=== PATIENT | female | born 1965 | race Hispanic/Latino ===

== ENCOUNTER → 2018-01-02 | Outpatient (CLI) | payer BC ==
--- NOTE | 2018-01-02 08:18 | Diagnostic Imaging Report ---
PROCEDURE: X-RAY CHEST, TWO VIEWS COMPARISON: 06/07/2017. INDICATIONS: COUGH FINDINGS: LUNGS: No consolidations or edema. Calcified granuloma right lower lobe unchanged. PLEURA: No effusions or pneumothorax. HEART \T\ MEDIASTINUM: The heart is within normal size-limits. BONES \T\ SOFT TISSUES: No acute findings. CONCLUSION: No acute thoracic abnormality. Dictated by: Colby Barker M.D. on 01/02/2018 at 8:20 Electronically approved by: Colby Barker M.D. on 01/02/2018 at 8:20
--- NOTE | 2018-01-02 08:21 | Diagnostic Imaging Report ---
PROCEDURE: X-RAY UPPER GI SERIES WITH AIR CONTRAST TECHNIQUE: Effervescent crystals and barium were ingested by mouth and multiple fluoroscopic spot images of the esophagus, stomach, and proximal small bowel were obtained. Fluoroscopy time: 1.4 minutes COMPARISON: None. INDICATIONS: COUGH FINDINGS: ESOPHAGUS: Motility: Within normal limits. Mucosa: Unremarkable. Distensibility: Normal. GASTROESOPHAGEAL JUNCTION: No evidence of hiatal hernia. GASTROESOPHAGEAL REFLUX: Significant gastroesophageal reflux into the upper third of the esophagus. STOMACH: Normally distensible and demonstrates normal contours and mucosal pattern. DUODENUM: Bulb and sweep are normal. Duodenal-jejunal junction is in the normal expected position. IMPRESSION: Spontaneous gastroesophageal reflux into the upper third of the esophagus. Otherwise unremarkable biphasic upper GI examination. Dictated by: Colby Barker M.D. on 01/02/2018 at 8:23 Electronically approved by: Colby Barker M.D. on 01/02/2018 at 8:23
== END ==
LOC: DX 07:14
PROVIDERS: ATTEND Family Medicine
DX: R05 Cough (principal)
CPT/HCPCS: 71046; 74246

== ENCOUNTER → 2019-02-12 | Day surgery (SDC) | payer BC ==
[2019-02-09 15:52] LABS: ANION GAP 13.9 mmol/L (8-16); BLOOD UREA NITROGEN 15 mg/dL (7-26); BUN/CREATININE RATIO 22 (6-25); CALCIUM 9.7 mg/dL (8.4-10.2); CARBON DIOXIDE 31 mmol/L (22-29); CHLORIDE 100 mmol/L (98-107); CREATININE, SERUM 0.69 mg/dL (0.57-1.11); EST GLOMERULAR FILTRATION RATE > 60 ML/MIN (60-); GLUCOSE 91 mg/dL (74-118); POTASSIUM 3.9 mmol/L (3.5-5.1); SODIUM 141 mmol/L (136-145)
[~2019-02-12] MED LIST: AMLODIPINE BESY10 MG PO; BUPIVACAINE HCL 0.5% INJ 30 ML VIAL INJ ONE; DEXAMETHASONE SOD PHOS INJ 4 MG/ML VIAL ONE; FENTANYL CITRATE/PF 100MCG/2 ML INJ ONE; HYDROCHLOROTHIA25 MG PO; HYDROXYCHLOROQ200 MG PO; KETOROLAC TROMETHAMINE 30 MG/ML VIAL ONE; LIDOCAINE HCL 2% LOCAL INJ 5 ML SDV VIAL INJ ONE; METFORMIN HCL500 MG PO; MIDAZOLAM HCL 2 MG/2 ML VIAL ONE; MUPIROCIN 2% OINT 22 GM TUBE ONE; NOVOLOG MI100 UNIT/1 SC; ONDANSETRON HCL INJ 2MG/ML 2ML 2 MG/ML VIAL ONE; PRAVASTATIN SOD20 MG PO; PREVACID15 MG PO; PROPOFOL IV EMULSION 10 MG/ML 20 ML VIAL ONE; SEVOFLURANE INHAL SOLN 250 ML PEN BTL ONE
--- OUTSIDE RECORDS SUMMARY | 2019-02-12 05:37 | XMS REPORT | Summary of Care ---
Author Organization Unknown Address Unknown Phone Unavailable Encounter HQ Encntr_aliariel(FIN) [id number] Date(s): 06/16/14 - 06/16/14 [facility] Outpatient Imaging - [address] [address]- [place] Discharge Disposition: Home Physician Attending: Rivas Larsen MD Reason for Visit V76.12 - SCREEN MAMMOGRA Problem List Condition Effective Dates Status Health Status Informant Breast Active lump(Confirmed) Hypercholesterolemia Active (Confirmed) IDDM - Active Insulin-dependent diabetes mellitus(Confirmed) Lupus(Confirmed) Active Allergies, Adverse Reactions, Alerts Substance Reaction Severity Status NKDA Active Medications No data available for this section Medications Administered During Your Visit No data available for this section Immunizations No data available for this section
--- OUTSIDE RECORDS SUMMARY | 2019-02-12 05:37 | XMS REPORT ---
Author Author Shea Stafford Organization [employer] Address Unknown Phone Unavailable Care Team Providers Care Colorman Name Role Phone Shea Stafford CP Unavailable Allergies, Adverse Reactions, Alerts Substance Reaction Event Type N.K.D.A. Info Not Available Non Drug Allergy Problems Problem Type Condition Code Onset Dates Condition Status Problem Lupus M32.9 Active Problem Carpal tunnel syndrome G56.00 Active Problem Carpal tunnel syndrome, right upper limb G56.01 Active Assessment Long-term use of high-risk medication Z79.899 Active Problem Long-term use of high-risk medication Z79.899 Active Assessment Lupus M32.9 Active Medications Medication Code System Code Instructions Start Date End Date Status Dosage Hydroxychloroquine Sulfate ND 19574676889 200 MG Active TOME 1 TABLETA DOS VECES AL ALTA CON COMIDA O LECHE Hydroxychloroquine Sulfate NDC 48177883807 200 MG Active TOME 1 TABLETA DOS VECES AL ALTA CON COMIDA O LECHE Iron ND 58781487764 28 MG Orally Once a day Active 1 tablet Metformin HCl NDC 95233071097 500 MG Orally Twice a day Active 1 tablet with meals Pravastatin Sodium ND 45556197162 20 MG Orally Once a day Active 1 tablet Novolin 70/30 ND 73165901667 (70-30) 100 UNIT/ML Subcutaneous Active as directed Valsartan ND 17303057334 160 MG Orally Once a day Active 1 tablet Vital Signs Date/Time: Sep 05, 2017 BMI 32.59 Index Weight 184 lbs Height 63 in Temperature 96.3 F Cardiac Monitoring Heart Rate 70 /min Blood Pressure Diastolic 80 mm Hg Blood Pressure Systolic 132 mm Hg Results No Known Results Summary Purpose [employer]ClinicalWorks Submission
--- OUTSIDE RECORDS SUMMARY | 2019-02-12 05:37 | XMS REPORT | Summary of Care ---
Author Author [facility] - [place] Organization [facility] [place] Address Unknown Phone Unavailable Encounter HQ Encntr_aliariel(FIN) [id number] Date(s): 01/07/16 - 01/07/16 [facility] Outpatient Imaging - [place] [address] [address]- [facility] [phone] Discharge Disposition: Home Attending Physician: Rivas Larsen MD Vital Signs No data available for this section Problem List Condition Effective Dates Status Health Status Informant Benign hypertension1 Active Benign tumor of 04/07/13 Active breast2 Breast Active lump(Confirmed) Hypercholesterolemia Active 3 IDDM - Active Insulin-dependent diabetes mellitus(Confirmed) Lupus(Confirmed) Active Obesity4 04/07/13 Active Type 2 diabetes Active mellitus5 1Data migrated from [employer] on 01/15/15. 2Data migrated from [employer] on 01/15/15. 3Data migrated from [employer] on 01/15/15. 4Data migrated from [employer] on 01/15/15. 5Data migrated from [employer] on 01/15/15. Allergies, Adverse Reactions, Alerts Substance Reaction Severity Status NKDA Active Medications No data available for this section Results No data available for this section Immunizations No data available for this section Procedures No data available for this section Social History No data available for this section Assessment and Plan No data available for this section
--- OUTSIDE RECORDS SUMMARY | 2019-02-12 05:37 | XMS REPORT | Summary of Care ---
Author Author [facility] [place] Organization [facility] [place] Address Unknown Phone Unavailable Encounter HQ Encntr_aliariel(FIN) [id number] Date(s): 09/13/17 - 09/13/17 [facility] [place] [address] [phone] Encounter Diagnosis Encounter for screening mammogram for malignant neoplasm of breast (Final) - 09/16/17 Discharge Disposition: Home or Self Care Attending Physician: Troy Weiss MD Vital Signs No data available for [...]
--- OUTSIDE RECORDS SUMMARY | 2019-02-12 05:37 | XMS REPORT | Summary of Care ---
Author Author [facility] [place] Organization [facility] [place] Address Unknown Phone Unavailable Encounter HQ Ernestor_elio(FIN) [id number] Date(s): 11/28/18 - 11/28/18 [facility] Outpatient Imaging - [place] [address] [place] [phone] Encounter Diagnosis Encounter for screening mammogram for malignant neoplasm of breast (Final) - Discharge Disposition: Home or Self Care Attending Physician: Rivas Larsen MD Referring Physician: Rivas Larsen MD Vital Signs No [...]
--- OUTSIDE RECORDS SUMMARY | 2019-02-12 05:37 | XMS REPORT | Continuity of Care Document ---
Author Author [facility] Organization [employer] Address Unknown Phone Unavailable Care Team Providers Care Support Dba Name Role Phone [employer] Unavailable Unavailable Problems Problem Status Onset Date Classification Date Reported Comments Source Z12.31 - ENCNTR SCREEN MAMMOGRAM FOR MA Active 11/24/2015 [facility] UNK Active 05/21/2013 [facility] Benign tumor of breast<sup>2</sup> Active 04/07/2013 Problem 11/30/2018 Data migrated from [employer] on 01/15/15. [facility] [place] Obesity<sup>4</sup> Active 04/07/2013 Problem 11/30/2018 Data migrated from [employer] on 01/15/15. [facility] [place] LEFT BREAST MASS Active 12/29/2012 [facility] Encounter for screening mammogram for malignant neoplasm of breast 11/30/2018 [facility] [place] Benign hypertension<sup>1</sup> Active Problem 11/30/2018 Data migrated from [employer] on 01/15/15. [facility] [place] Breast lump Active Problem 11/30/2018 [facility] [place] Hypercholesterolemia<sup>3</sup> Active Problem 11/30/2018 Data migrated from [employer] on 01/15/15. [facility] [place] IDDM - Insulin-dependent diabetes mellitus Active Problem 11/30/2018 [facility] [place] Lupus Active Problem 11/30/2018 [facility] [place] Type 2 diabetes mellitus<sup>5</sup> Active Problem 11/30/2018 Data migrated from [employer] on 01/15/15. [facility] [place] Hypercholesterolemia Active Problem 06/18/2014 [facility] [place] Long-term use of high-risk medication Active Diagnosis 11/14/2018 Lauri Leary Carpal tunnel syndrome, right upper limb Active Problem 11/14/2018 Lauri Leary Lupus Active Problem 11/14/2018 Lauri Leary Proteinuria, unspecified Active Problem 11/14/2018 Lauri Leary Carpal tunnel syndrome Active Problem 11/14/2018 Lauri Leary Medications Medication Details Route Status Patient Instructions Ordering Provider Order Date Source Lisinopril 1 tablet Orally Active 2.5 MG Orally Once a day Nydia 04/23/2018 Lauri Leary Hydroxychloroquine Sulfate 1 tablet with food or milk Orally Active 200 MG Orally Twice a day Nydia Lauri Leary Amlodipine Besylate 1 tablet Orally Active 10 MG Orally Once a day Nydia Lauri Leary Hydrochlorothiazide 1 tablet in the morning Orally Active 25 MG Orally Once a day Nydia Lauri Leary Lansoprazole 1 capsule Orally Active 30 MG Orally Once a day Nydia Lauri Leary Iron 1 tablet Orally Active 28 MG Orally Once a day Nydia Lauri Leary Pravastatin Sodium 1 tablet Orally Active 20 MG Orally Once a day Nydia Lauri Leary Metformin HCl 1 tablet with meals Orally Active 500 MG Orally Twice a day Nydia Lauri Leary Novolin 70/30 as directed Subcutaneous Active (70-30) 100 UNIT/ML Subcutaneous twice a day Nydia Lauri Leary Valsartan 1 tablet Orally Active 160 MG Orally Once a day Nydia Lauri Leary Hydroxychloroquine Sulfate TOME 1 TABLETA DOS VECES AL ALTA CON COMIDA O LECHE NA Active 200 MG Nydia Lauri Leary Allergies, Adverse Reactions, Alerts Substance Category Reaction Severity Reaction type Status Date Reported Comments Source N.K.D.A. Adverse Reaction Info Not Available Adverse Reaction Active 11/11/2018 Lauri Leary Immunizations Results Pathology Reports Diagnostic Reports Report Value Date Source Breast Mammo Scrn LES incl CAD MA BILATERAL DIGITAL SCREENING MAMMOGRAM WITH CAD: 11/28/2018 CLINICAL: Encounter For Screening Mammogram For Malignant Neoplasm Of Breast/Z12.31. Current study was evaluated with a Computer Aided Detection (CAD) system. COMPARISON:Comparison is made to exams dated: 09/13/2017 mammogram, 01/07/2016 mammogram, and 06/16/2014 mammogram - [facility]. TECHNIQUE: Mammographic views were obtained using digital acquisition. Current study was also evaluated with a Computer Aided Detection (CAD) system. FINDINGS: There are scattered fibroglandular densities in both breasts. There are post operative findings in the left breast. No significant masses, calcifications, or other findings are seen in either breast. There has been no significant interval change. IMPRESSION: BENIGN RECOMMENDATION:There is no mammographic evidence of malignancy. A 1 year screening mammogram is recommended.(11/29/2019) This exam was interpreted at [id number] for CARMEN Pina, SL 15. Professional services are provided by the [facility] Division of Diagnostic Imaging. Sonal Laird M.D. ms/penrad:11/28/2018 08:34:50 Car Varnisher(s): Rere Garcia, RT(R)(M), [facility] letter sent: BI-RADS 1/2 Mammogram BI-RADS: 2 Benign 11/28/2018 [facility] [place] Breast Mammo Scrn LES incl CAD MA BILATERAL DIGITAL SCREENING MAMMOGRAM WITH CAD: 09/13/2017 CLINICAL: Routine/Screening. Current study was evaluated with a Computer Aided Detection (CAD) system. COMPARISON:Comparison is made to exams dated: 01/07/2016 mammogram, 06/16/2014 mammogram - [facility], 01/01/2013 mammogram - [facility], 12/23/2012 mammogram, and 11/15/2010 mammogram - [facility]. TECHNIQUE: Mammographic views were obtained using digital acquisition. Current study was also evaluated with a Computer Aided Detection (CAD) system. FINDINGS: There are scattered fibroglandular densities in both breasts. There are post operative findings in the left breast. No significant masses, calcifications, or other findings are seen in either breast. There has been no significant interval change. IMPRESSION: BENIGN RECOMMENDATION:There is no mammographic evidence of malignancy. A 1 year screening mammogram is recommended.(09/14/2018) This exam was interpreted at [id number] for CARMEN Pina. Professional services are provided by the [facility] Division of Diagnostic Imaging. Israel Tavarez M.D. cm/penrad:09/16/2017 08:40:40 Car Varnisher(s): Aneta Chairez, RT(R)(M), [facility] letter sent: BI-RADS 1/2 Mammogram BI-RADS: 2 Benign 09/13/2017 [facility] [place] Digital Mammo Screening Les MA - DIGITAL MAMMO SCREENING LES MA BILATERAL DIGITAL SCREENING MAMMOGRAM WITH CAD: 01/07/2016 CLINICAL: Z12.31 Encounter For Screening Mammogram For Malignant Neoplasm Of Breast. Current study was evaluated with a Computer Aided Detection (CAD) system. Comparison is made to exams dated: 06/16/2014 mammogram - [facility], 01/01/2013 mammogram - [facility], 12/23/2012 mammogram and 11/15/2010 mammogram - [facility]. There are scattered fibroglandular densities in both breasts. There are post operative findings in the left breast. No significant masses, calcifications, or other findings are seen in either breast. There has been no significant interval change. IMPRESSION: NEGATIVE There is no mammographic evidence of malignancy. A 1 year screening mammogram is recommended. Monica Tyler M.D. ia/penrad:01/09/2016 14:02:09 Car Varnisher: Kristie Unger RT(R)(M), [facility] This exam was dictated and interpreted by [id number] for CARMEN Torres. letter sent: Normal exam Mammogram BI-RADS: 1 Negative 01/07/2016 [facility] [place] Digital Mammo Screening Les MA - DIGITAL MAMMO SCREENING LES MA BILATERAL DIGITAL SCREENING MAMMOGRAM WITH CAD: 06/16/2014 CLINICAL: Annual Screening. Current study was evaluated with a Computer Aided Detection (CAD) system. Comparison is made to exams dated: 11/15/2010 mammogram, 12/23/2012 mammogram - [facility] and 06/15/2013 localization - [facility]. The tissue of both breasts is heterogeneously dense, which could obscure detection of small masses. There are post operative findings in the left breast. No significant masses, calcifications, or other findings are seen in either breast. IMPRESSION: BENIGN There is no mammographic evidence of malignancy. A screening mammogram in one year is recommended. Dr. Rachele ramsey/penrad:06/17/2014 12:19:03 Car Varnisher: Anastacia Lynch RT(R)(M), [facility] This exam was dictated and interpreted by [id number] for CARMEN Torres. letter sent: Normal exam Mammogram BI-RADS: 2 Benign 06/16/2014 [facility] [place] Digital Mammo DX Uni MA - DIGITAL MAMMO DX UNI MA/L UNILATERAL LEFT DIGITAL DIAGNOSTIC MAMMOGRAM WITH CAD POST-PROCEDURE IMAGING FOR MARKER PLACEMENT: 01/01/2013 CLINICAL: Post Biopsy Clip Placement. Current study was evaluated with a Computer Aided Detection (CAD) system. Comparison is made to exams dated: 12/23/2012 mammogram, 11/15/2010 mammogram, 12/23/2012 ultrasound - [facility] and 01/01/2013 ultrasound biopsy - [facility]. The tissue of the left breast is heterogeneously dense. This may lower the sensitivity of mammography. Post procedure digital mammogram demonstrates the biopsy clip in appropriate position. Biopsied lesion is again noted. No other significant interval change. IMPRESSION: POST PROCEDURE MAMMOGRAM FOR MARKER PLACEMENT Biopsy clip is in appropriate position. Please see biopsy report for further details. Follow-up with ACR/ACS guidelines. SUMMARY: SL: 13. Montse urbinat/penrad:01/01/2013 14:41:55 Car Varnisher: Karen Thayer, [facility] Mammogram BI-RADS: Post-procedure mammogram for marker placement 01/01/2013 [facility] Breast biopsy US guided - BREAST BIOPSY US GUIDED/L ULTRASOUND GUIDED BIOPSY LEFT BREAST WITH MARKING DEVICE INSERTED AND POST DIGITAL MAMMOGRAPHIC AND ULTRASOUND IMAGIN01/01/2013 CLINICAL: Left Breast Mass. PATIENT CONSENT: Oral and written informed consent was obtained. Risks, benefits, and alternatives were discussed with the patient. Risks include but are not limited to pain, infection, bleeding, incomplete procedure, repeat procedure, pneumothorax, damage to surrounding tissues, and allergic reaction. The patient understands the plan and wishes to proceed. A time out was performed immediately prior to the procedure. Correlation is made to exams dated: 12/23/2012 ultrasound, 12/23/2012 mammogram and 11/15/2010 mammogram - [facility]. An ultrasound guided biopsy using real-time ultrasound was performed for the concerning palpable 9 mm wider than tall circumscribed oval mass located in the left breast at 11 o'clock anterior depth 9 cm from the nipple. This was described on the previous mammography and ultrasound reports. The skin was prepped in the usual manner. 10 ccs of 1% lidocaine was administered during the procedure. A skin john was made in the breast. The abnormality was approached from the lateral aspect. A 14 gauge biopsy needle was placed adjacent to the abnormality through an introducer device under ultrasound guidance. Once the needle was documented to be in the correct location, three cores were obtained using a BARD biopsy device. A Bard UltraClip Dual Trigger ribbon clip was inserted into the biopsy cavity. A skin adhesive and a sterile dressing were applied to the access site. Post procedure digital mammographic and ultrasound imaging demonstrates the clip at the targeted area and partial removal of the abnormality. The specimens were sent to the laboratory for pathological analysis. IMPRESSION: ULTRASOUND GUIDED BIOPSY HIGH RISK BENIGN Ultrasound guided biopsy of the 9 mm wider than tall mass in the left breast at 11 o'clock anterior depth 9 cm from the nipple was successful with no apparent post procedure complications. Pathology indicates high risk benign findings "Lymphoplasmacytic proliferation with keloid like collagen formation; There are no definitive changes of lymphoma but cannot entirely exclude a low grade lymphoma with plasmacytic differentiation. Also within the differential is lymphocytic/diabetic mastopathy. Recommend excision of lesion for definitive evaluation. Recommend flow cytometry to be performed on excised specimen". Pathology results are concordant with imaging findings. A surgical consult and a surgical excision are recommended. A phone call was made to the physician at 1400 hrs 01/08/13. SL: 13. Montse wilson/:01/13/2013 07:33:21 Car Varnisher: Tanesha Mari, [facility] 01/01/2013 [facility] Consultation Notes Discharge Summaries History and Physicals Vital Signs Vital Sign Value Date Comments Source Weight 187.9 11/11/2018 Lauri Leary Height 63 11/11/2018 Lauri Leary Temperature Oral (F) 98.1 F 11/11/2018 Lauri Leary Heart Rate 72 11/11/2018 Lauri Leary Diastolic (mm Hg) 80 11/11/2018 Lauri Leary Systolic (mm Hg) 140 11/11/2018 Lauri Leary Weight 189.8 04/23/2018 Lauri Leary Height 63 04/23/2018 Lauri Leary Temperature Oral (F) 98.1 F 04/23/2018 Lauri Leary Heart Rate 68 04/23/2018 Lauri Leary Diastolic (mm Hg) 70 04/23/2018 Lauri Leary Systolic (mm Hg) 132 04/23/2018 Lauri Leary Weight 184 09/05/2017 Lauri Leary Height 63 09/05/2017 Lauri Leary Temperature Oral (F) 96.3 F 09/05/2017 Lauri Leary Heart Rate 70 09/05/2017 Lauri Leary Diastolic (mm Hg) 80 09/05/2017 Lauri Leary Systolic (mm Hg) 132 09/05/2017 Lauri Leary Encounters Location Location Details Encounter Type Encounter Number Reason For Visit Attending Provider ADM Date DC Date Status Source [facility] Outpatient [id number] LEFT BREAST MASS RIVAS LARSEN 01/01/2013 Active [facility] [place] [facility] [id number] Rivas Larsen 06/16/2014 06/17/2014 [facility] [place] [facility] - [place] [facility] [id number] Rivas Larsen 01/07/2016 01/08/2016 [facility] [place] [facility] - [place] [facility] [id number] Troy Weiss 09/13/2017 09/14/2017 [facility] [place] [facility] - [place] Outpt Di[facility] Services [id number] Rivas Larsen 11/28/2018 11/29/2018 [facility] [place] [facility] Outpatient [id number] JAYLEEN ORDONEZ Active [facility] Procedures Plan of Care Social History Social History Date Source No data available for this section 11/29/2018 [facility] [place] Family History Advance Directives Functional Status
--- OUTSIDE RECORDS SUMMARY | 2019-02-12 05:37 | XMS REPORT ---
Author Author Shea Stafford [facility] [employer] Address Unknown Phone Unavailable Care Team Providers Care Supervisor Telephone Information Name Role Phone Shea Stafford Unavailable Allergies, Adverse Reactions, Alerts Substance Reaction Event Type N.K.D.A. Info Not Available Non Drug Allergy Problems Problem Type Condition Code Onset Dates Condition Status Assessment Long-term use of high-risk medication Z79.899 Active Problem Carpal tunnel syndrome, right upper limb G56.01 Active Problem Lupus M32.9 Active Problem Proteinuria, unspecified R80.9 Active Assessment Lupus M32.9 Active Problem Carpal tunnel syndrome G56.00 Active Problem Long-term use of high-risk medication Z79.899 Active Medications Medication Code System Code Instructions Start Date End Date Status Dosage Hydroxychloroquine Sulfate [facility] 54954957646 200 MG Orally Twice a day Active 1 tablet with food or milk Lisinopril [facility] 01432791484 2.5 MG Orally Once a day Apr 23, 2018 Active 1 tablet Amlodipine Besylate [facility] 76893385419 10 MG Orally Once a day Active 1 tablet Hydrochlorothiazide [facility] 01621065650 25 MG Orally Once a day Active 1 tablet in the morning Lansoprazole [facility] 08790667879 30 MG Orally Once a day Active 1 capsule Iron [facility] 10462558174 28 MG Orally Once a day Active 1 tablet Pravastatin Sodium [facility] 75326431252 20 MG Orally Once a day Active 1 tablet Metformin HCl [facility] 94867653508 500 MG Orally Twice a day Active 1 tablet with meals Novolin 70/30 [facility] 65770117166 (70-30) 100 UNIT/ML Subcutaneous twice a day Active as directed Valsartan [facility] 59347477679 160 MG Orally Once a day Active 1 tablet Vital Signs Date/Time: November 11, 2018 BMI 33 Index Weight 187.9 lbs Height 63 in Temperature 98.1 F Cardiac Monitoring Heart Rate 72 /min Blood Pressure Diastolic 80 mm Hg Blood Pressure Systolic 140 mm Hg Results No Known Results Summary Purpose [employer] Submission
--- OUTSIDE RECORDS SUMMARY | 2019-02-12 05:38 | XMS REPORT ---
Author Author [facility] Address Unknown Phone Unavailable Care Team Providers Care De Icer Name Role Phone Lelia BATISTA PP Unavailable MARTINA MCNULTY Unavailable Unavailable JOHANNE BATISTA M.D. Unavailable Unavailable Problems This patient has no known problems. Allergies, Adverse Reactions, Alerts This patient has no known allergies or adverse reactions. Medications This patient has no known medications. Results Test Description Test Time Test Comments Text Results Atomic Results Result Comments POC Glucose, Blood 2017-07-05 11:06:00 POC Glucose (test code=POCGLUC) 210 mg/dL 70-115 Notify RN or MDIf you consider your patient critically ill, the Tatiana Accu-Chek InformII metershould not be used for Glucose determinations.Draw a venous Glucose and send to the Main Lab for Analysis. Basic Metabolic [id number] 06:42:00* Test Item Value Reference Range Comments Sodium (test code=NA) 140 mmol/L 135-145 Potassium (test code=K) 4.7 mmol/L 3.5-5.1 Chloride (test code=CL) 103 mmol/L 98-105 Carbon Dioxide (test code=CO2) 29 mmol/L 22-29 Glucose (test code=GLU) 138 mg/dL 70-115 Blood Urea Nitrogen (test code=BUN) 10 mg/dL 6-20 Creatinine (test code=CREAT) 0.5 mg/dL 0.5-0.9 Calcium (test code=CA) 9.0 mg/dL 8.3-10.5 BUN/Creatinine Ratio (test code=BCRATIO) 20.0 Anion Gap (test code=AGAP) 8 mmol/L 7-16 Estimated GFR (test code=GFR) >60 mL/min/1.73m2 eGFR (estimated Glomerular Filtration Rate) is an estimated value,calculated from the patient's serum creatinine using the MDRD equation.It is NOT the patient's actual GFR. The eGFR provides a more clinicallyuseful measure of kidney disease than serum creatinine alone.This calculation takes sex and race into account, if the informationis provided. If the race is not provided, and the patient isAfrican-Cambodian, multiply by 1.212. If sex is not provided, and thepatient is female, multiply by 0.742. Results for patients <18 years ofage have not been validated by the MDRD study and should be interpretedwith caution.eGFR Result Interpretation:eGFR > or=60 is in the Normal RangeeGFR < 60 may mean kidney diseaseeGFR < 15 may mean kidney failureRanges recommended by the National Kidney Foundat ion,http://nkdep.nih.gov CBC with [id number] 06:32:00* Test Item Value Reference Range Comments WBC (test code=WBC) 9.8 K/cumm 4.4-10.5 RBC (test code=RBC) 3.42 M/cumm 3.75-5.20 Hemoglobin (test code=HGB) 10.6 gm/dL 12.2-14.8 VERIFIED BY REPEAT TESTINGREAD BACK LAB VALUESLOW DELTA HGB DUE TO SURGERY PER Salma DIEGO/RN @0631 ON 07/05/17 BYED Hematocrit (test code=HCT) 29.5 % 36.5-44.4 MCV (test code=MCV) 86.3 fL 80-100 MCH (test code=MCH) 30.9 pg 27.0-32.5 MCHC (test code=MCHC) 35.9 g/dL 32.0-37.5 RDW (test code=RDW) 12.8 % 11.5-14.5 Platelet Count (test code=PLTCT) 186 K/cumm 140-440 MPV (test code=MPV) 10.6 fL Diff Method (test code=DIFFM) Auto Neutrophil (test code=NEUT) 67.1 % 36-70 Lymphocyte (test code=LYMPH) 27.7 % 12-44 Monocyte (test code=MONO) 4.9 % 0-11 Eosinophil (test code=EOS) 0.1 % 0-7 Basophil (test code=BASO) 0.2 % 0-2 Neutro Abs (test code=ANEUT) 6.6 K/cumm 1.6-7.4 Lymph Abs (test code=ALYMPH) 2.7 K/cumm 0.5-4.6 Haskell Abs (test code=AMONO) 0.5 K/cumm 0.0-1.2 Eos Abs (test code=AEOS) 0.01 K/cumm 0.00-0.74 Baso Abs (test code=ABASO) 0.0 K/cumm 0.00-0.21 POC Glucose, [id number] 00:52:00* Test Item Value Reference Range Comments POC Glucose (test code=POCGLUC) 231 mg/dL 70-115 If you consider your patient critically ill, the Tatiana Accu-Chek InformII metershould not be used for Glucose determinations.Draw a venous Glucose and send to the Main Lab for Analysis. POC Glucose, [id number] 19:17:00* Test Item Value Reference Range Comments POC Glucose (test code=POCGLUC) 277 mg/dL 70-115 If you consider your patient critically ill, the Tatiana Accu-Chek InformII metershould not be used for Glucose determinations.Draw a venous Glucose and send to the Main Lab for Analysis. POC Glucose, [id number] 16:38:00* Test Item Value Reference Range Comments POC Glucose (test code=POCGLUC) 201 mg/dL 70-115 If you consider your patient critically ill, the Tatiana Accu-Chek InformII metershould not be used for Glucose determinations.Draw a venous Glucose and send to the Main Lab for Analysis. POC Glucose, [id number] 11:51:00* Test Item Value Reference Range Comments POC Glucose (test code=POCGLUC) 224 mg/dL 70-115 If you consider your patient critically ill, the Tatiana Accu-Chek InformII metershould not be used for Glucose determinations.Draw a venous Glucose and send to the Main Lab for Analysis. XR SPINE, LUMBAR 1 [id number] 10:15:24Radiographic Assistance:LOCATION: [id number]: M51.26: OTHER INTERVERTEBRAL DISC DISPLACEMENT, LUMBAR REGIONDISCUSSION:Radiographic assistance was provided. Intraprocedural lateral lumbarspine radiograph was interpreted by the performing physician. Pleaserefer to the referring physician's procedure note/operative report forcomplete detail. XR SPINE, LUMBAR 1 [id number] 09:55:05Radiographic Assistance:LOCATION: [id number]: M51.26: OTHER INTERVERTEBRAL DISC DISPLACEMENT, LUMBAR REGIONDISCUSSION:Radiographic assistance was provided. Intraprocedural lateral lumbarspine radiograph was interpreted by the performing physician. Pleaserefer to the referring physician's procedure note/operative report forcomplete detail. BHCG, Urine, [id number] 07:00:00* Test Item Value Reference Range Comments Preg Qual [Ur] (test code=HUHCG) Negative Negative POC Glucose, [id number] 06:43:00* Test Item Value Reference Range Comments POC Glucose (test code=POCGLUC) 167 mg/dL 70-115 If you consider your patient critically ill, the Tatiana Accu-Chek InformII metershould not be used for Glucose determinations.Draw a venous Glucose and send to the Main Lab for Analysis. Comprehensive Metabolic [id number] 14:27:00* Test Item Value Reference Range Comments Sodium (test code=NA) 142 mmol/L 135-145 Potassium (test code=K) 3.7 mmol/L 3.5-5.1 Chloride (test code=CL) 101 mmol/L 98-105 Carbon Dioxide (test code=CO2) 30 mmol/L 22-29 Glucose (test code=GLU) 48 mg/dL 70-115 VERIFIED BY REPEAT TESTING READ BACK LAB VALUES Karolina ARCE 1427 07/02/17 VT Blood Urea Nitrogen (test code=BUN) 15 mg/dL 6-20 Creatinine (test code=CREAT) 0.6 mg/dL 0.5-0.9 Calcium (test code=CA) 9.9 mg/dL 8.3-10.5 Prot Total (test code=TP) 7.4 g/dL 6.4-8.3 Albumin (test code=ALB) 4.6 g/dL 3.5-5.2 A/G Ratio (test code=AGRATIO) 1.6 Ratio Globulin (test code=GLOB) 2.8 2.9-3.1 Bili Total (test code=TBIL) 0.3 mg/dL 0.1-0.9 Alk Phos (test code=APHOS) 77 U/L 35-104 AST (test code=AST) 20 U/L 1-32 ALT (test code=ALT) 26 U/L 1-33 BUN/Creatinine Ratio (test code=BCRATIO) 25.0 Anion Gap (test code=AGAP) 11 mmol/L 7-16 Estimated GFR (test code=GFR) >60 mL/min/1.73m2 eGFR (estimated Glomerular Filtration Rate) is an estimated value,calculated from the patient's serum creatinine using the MDRD equation.It is NOT the patient's actual GFR. The eGFR provides a more clinicallyuseful measure of kidney disease than serum creatinine alone.This calculation takes sex and race into account, if the informationis provided. If the race is not provided, and the patient isAfrican-Cambodian, multiply by 1.212. If sex is not provided, and thepatient is female, multiply by 0.742. Results for patients <18 years ofage have not been validated by the MDRD study and should be interpretedwith caution.eGFR Result Interpretation:eGFR > or=60 is in the Normal RangeeGFR < 60 may mean kidney diseaseeGFR < 15 may mean kidney failureRanges recommended by the National Kidney Foundat ion,http://nkdep.nih.gov Urinalysis [id number] 14:15:00* Test Item Value Reference Range Comments Color (test code=COLOR) Yellow Yellow,Straw,Pl yellow Clarity (test code=CLAR) Clear Clear Specific Cornish (test code=SPGR) 1.012 1.001-1.035 pH (test code=PH) 7.0 5.0-9.0 Ketone (test code=KET) Negative mg/dL Negative Glucose (test code=GLUCUR) Negative mg/dL Negative Protein (test code=PROT) Negative mg/dL Negative Bilirubin (test code=BILI) Negative mg/dL Negative Occult Blood (test code=UDOB) Negative Negative Urobilinogen (test code=UROB) 0.2 mg/dL 0.2-1.0 Nitrite (test code=NIT) Negative Negative Leuk Esterase (test code=LEUK) Negative Negative Micros Exam (test code=MEXAM) Not indicated Prothrombin [id number] 14:15:00* Test Item Value Reference Range Comments PT (test code=PT) 12.20 seconds 9.78-13.35 INR (test code=INR) 1.08 Ratio 0.6-1.2 Partial Thromboplastin [id number] 14:15:00* Test Item Value Reference Range Comments aPTT (test code=PTT) 34.80 seconds 24.39-37.25 Lipid [id number] 14:10:00* Test Item Value Reference Range Comments Cholesterol (test code=CHOL) 126 mg/dL 0-200 Triglycerides (test code=TRIG) 117 mg/dL 9-200 HDL (test code=HDL) 47 mg/dL 50-60 Chol/HDL (test code=CHOLPHDL) 2.7 Ratio 0.0-4.4 LDL, Calculated (test code=LDLC) 56 0-130 (NOTE)RISK OF HEART DISEASEPublished by Camb[place] Heart AssociationAnalyte Optimal Boderline Increased RiskCHOL <200 200-239 >240TRIG <150 150- 199 >200HDL Male: >60 <40HDL Female: >60 <50LDL <100 130-159 >160LDL NEAR OPTIMAL IS 100-129 VLDL (test code=VLDL) 23 mg/dL 5-40 LDL/HDL (test code=LDLPHDL) 1 CBC with [id number] 14:05:00* Test Item Value Reference Range Comments WBC (test code=WBC) 10.4 K/cumm 4.4-10.5 RBC (test code=RBC) 4.63 M/cumm 3.75-5.20 Hemoglobin (test code=HGB) 14.3 gm/dL 12.2-14.8 Hematocrit (test code=HCT) 40.0 % 36.5-44.4 MCV (test code=MCV) 86.4 fL 80-100 MCH (test code=MCH) 30.8 pg 27.0-32.5 MCHC (test code=MCHC) 35.7 g/dL 32.0-37.5 RDW (test code=RDW) 12.5 % 11.5-14.5 Platelet Count (test code=PLTCT) 231 K/cumm 140-440 MPV (test code=MPV) 11.2 fL Diff Method (test code=DIFFM) Auto Neutrophil (test code=NEUT) 62.8 % 36-70 Lymphocyte (test code=LYMPH) 31.1 % 12-44 Monocyte (test code=MONO) 4.6 % 0-11 Eosinophil (test code=EOS) 0.9 % 0-7 Basophil (test code=BASO) 0.6 % 0-2 Neutro Abs (test code=ANEUT) 6.5 K/cumm 1.6-7.4 Lymph Abs (test code=ALYMPH) 3.2 K/cumm 0.5-4.6 Haskell Abs (test code=AMONO) 0.5 K/cumm 0.0-1.2 Eos Abs (test code=AEOS) 0.10 K/cumm 0.00-0.74 Baso Abs (test code=ABASO) 0.1 K/cumm 0.00-0.21 CHEST 2 VIEWS [place] [address] Patient Name: FLACO MENA MR #: [id number] : 1965 Age/Sex: 52/F Req #: [id number] Adm Physician: Ordered by: PRICILA QUIROZ, MARTINA Mack MD Report #: [id number] Location: DX Room/Bed: Procedure: [id number] DX/CHEST 2 VIEWS Exam Date : 01/02/18 Exam Time: 0735 REPORT STATUS: Ro d PROCEDURE: X-RAY CHEST, TWO VIEWS COMPARISON: 06/07/2017. INDICATIONS: COUGH FINDINGS: LUNGS: No consolidations or edema. Calcified granu sarah right lower lobe unchanged. PLEURA: No effusions or pneumothora x. HEART T MEDIASTINUM: The heart is within normal size-limits. BONES T SOFT TISSUES: No acute findings. CONCLUSION: No acu te thoracic abnormality. Dictated by: Gloria Reynolds M.D. on 01/02/2018 at 8:20 Electronically approved by: Gloria Reynolds M.D. on 01/02/2018 at 8:2 0 Dictated By: GLORIA REYNOLDS MD 9 Transcribed By: GUNJAN on 01/02/18819 COPY T O: MARTINA MCNULTY UPPER GI W/AIR CONTR [place] [address] Patient Name: FLACO MENA MR #: [id number] : 1965 Age/Sex: 52/F Req #: [id number] Adm Physician: Ordered by: MARTINA MCNULTY MD, MD Report #: [id number] Location: DX Room/Bed: Procedure: [id number] DX/UPPER GI W/AIR CONTR Ex am Date: 01/02/18 Exam Time: 0736 REPORT STATUS : Signed PROCEDURE: X-RAY UPPER GI SERIES WITH AIR CONTRAST TECHNIQUE: Effervescent crystals and barium were ingested by mouth and multiple fluoros copic spot images of the esophagus, stomach, and proximal small bowel were ob tained. Fluoroscopy time: 1.4 minutes COMPARISON: None. INDICATIONS: COUGH FINDINGS: ESOPHAGUS: Motility: Within n ormal limits. Mucosa: Unremarkable. Distensibility: Normal. GAS TROESOPHAGEAL JUNCTION: No evidence of hiatal hernia. GASTROESOPHAGEAL RE FLUX: Significant gastroesophageal reflux into the upper third of the esophag us. STOMACH: Normally distensible and demonstrates normal contours and mucosal pattern. DUODENUM: Bulb and sweep are normal. Duodenal-jejunal junction is in the normal expected position. IMPRESSION: Spontaneous gastroesophageal reflux into the upper third of the esophagus. Otherwise unremarkable biphasic upper GI examination. Dictated by: Gloria Reynolds M.D. on 01/02/2018 at 8:23 Electronically approved by: Gloria Reynolds M.D. on 01/02/2018 at 8:23 Dictated By: GLORIA REYNOLDS MD El ectronically Signed By: GLORIA REYNOLDS MD on 01/02/18822 Transcribed By: GUNJAN on 01/02/18822 COPY TO: MARTINA MCNULTY CHEST 2 VIEWS [place] [address] Patient Name: FLACO MENA MR #: [id number] : 09/1964 Age/Sex: 51/F Req #: [id number] Adm Physician: Ordered by: MARTINA MCNULTY MD, MD Report #: [id number] Location: [facility] Room /Bed: Procedure: [id number] DX/CHEST 2 VIEWS Exam Jeovanny e: 06/07/17 Exam Time: 1025 REPORT STATUS: Sign ed PROCEDURE: Frontal and lateral views of the chest. COMPARISON: [facility] st 2 views 08/31/2009. INDICATIONS: PREOP - LOWER BACK SURGERY FINDINGS: Lines/tubes: None. Lungs: The lungs are well inflated and cl ear. There is no evidence of pneumonia or pulmonary edema. Stable right lung base calcified granuloma. Pleura: There is no pleural effusion or pneu mothorax. Heart and mediastinum: The heart and the mediastinum are normal . Bones: No acute bony abnormality. Degenerative changes of the thoracic spine. IMPRESSION: No acute radiographic abnormality. Dict ated by: Bertha Louis M.D. on 06/07/2017 at 10:58 Electronically approve d by: Bertha Louis M.D. on 06/07/2017 at 10:58 Dictated By: BERTHA LOUIS MD 1058 Trans cribed By: GUNJAN on 06/07/17 1058 COPY TO: MARTINA MCNULTY MRI SPINE LUMBAR WO [place] [address] Patient Name: FLACO MENA MR #: [id number] : 1965 Age/Sex: 51/F Req #: [id number] Adm Physician: Ordered by: MARTINA MCNULTY MD, MD Report #: [id number] Location: MRI Room/Bed: Procedure: [id number] MRI/MRI SPINE LUMBAR WO E xa Date: 04/08/17 Exam Time: 1114 REPORT STATU S: Signed Examination: MRI SPINE LUMBAR WITHOUT CONTRAST History: Low ba ck pain radiating in the left lower extremity and with associated numbness and weakness. Comparison studies: None Technique: Sagittal, coronal and axial T2 , sagittal T1 and STIR; axial spin density oblique. Findings: Number of lumbar vertebral bodies: Five. Alignment: Straightening of no rmal lordosis. No scoliosis. Soft tissues: No T2 hyperintense inflammatory gary nges. Posterior paraspinal soft tissues and muscles: No abnormality. Lower thoracic cord: Normal in signal and morphology. The tip of the conus is at L1- L2. Cauda equina: No masses. No arachnoiditis. Vertebrae: No fracture s, infection or neoplasm. Degenerative changes: L1-L2: No abnormalit ies. L2-L3: No abnormalities. L3-L4: Right central disc protrusion superimposed a diffuse disc bulge and bilateral facet arthropathy result in m ild flattening of the ventral thecal sac and mild bilateral neural foraminal n arrowing. No canal stenosis. L4-L5: Mild diffuse disc bulge. No lalita inal or canal stenosis. L5-S1: Left central disc extrusion with superior migration to the mid L5 vertebral body superimposed on diffuse disc bulge and bilateral facet arthropathy results in severe left foraminal narrowing and imp ingement of the exiting left L5 nerve root. No canal stenosis. IMPRESSI ON: 1. Degenerative changes from L3-L4 through L5-S1 with a left central disc extrusion with superior migration at L5-S1 resulting in severe left later al foraminal narrowing and impingement of the exiting left L5 nerve root. 2. No canal stenosis. Signed by: Dr. Aaron Mccauley M.D. on 04/08/2017 6:3 4 PM Dictated By: AARON SON MD 1834 Transcribed By: MARKUS on 7 1834 COPY TO: MARTINA MCNULTY
--- OUTSIDE RECORDS SUMMARY | 2019-02-12 05:38 | XMS REPORT ---
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 Info Not Available Non Drug Allergy Problems Problem Type Condition Code Onset Dates Condition Status Problem Carpal tunnel syndrome, right upper limb G56.01 Active Problem Lupus M32.9 Active Problem Proteinuria, unspecified R80.9 Active Assessment Lupus M32.9 Active Assessment Proteinuria, unspecified R80.9 Active Problem Carpal tunnel syndrome G56.00 Active Problem Long-term use of high-risk medication Z79.899 Active Medications Medication Code System Code Instructions Start Date End Date Status Dosage Metformin HCl ND 56065530091 500 MG Orally Twice a day Active 1 tablet with meals Pravastatin Sodium ND 68354534506 20 MG Orally Once a day Active 1 tablet Valsartan ND 16556884367 160 MG Orally Once a day Active 1 tablet Novolin 70/30 ND 92083364564 (70-30) 100 UNIT/ML Subcutaneous twice a day Active as directed Lisinopril ND 12004834938 2.5 MG Orally Once a day Apr 23, 2018 Active 1 tablet Hydroxychloroquine Sulfate [facility] 17265490612 200 MG Active TOME 1 TABLETA DOS VECES AL ALTA CON COMIDA O LECHE Iron ND 42361319954 28 MG Orally Once a day Active 1 tablet Vital Signs Date/Time: Apr 23, 2018 BMI 33.62 Index Weight 189.8 lbs Height 63 in Temperature 98.1 F Cardiac Monitoring Heart Rate 68 /min Blood Pressure Diastolic 70 mm Hg Blood Pressure Systolic 132 mm Hg Results No Known Results Summary Purpose eClinicalWorks Submission
[2019-02-12] MEDS: CEFAZOLIN SOD 1 GM/NS 50ML 50 ML IV ONE (06:50)
[2019-02-12] MEDS: DEXTROSE 5% 250ML 250 ML IV ONE (07:10)
[2019-02-12 09:00] VITALS: BP 159/84
--- NOTE | 2019-02-12 18:14 | Operative Report ---
DATE OF PROCEDURE: 02/12/2019 SURGEON: Andres Tidwell MD PREOPERATIVE DIAGNOSIS: Right and left carpal tunnel syndrome. POSTOPERATIVE DIAGNOSES: 1. Right and left carpal tunnel syndrome. 2. Flexor tenosynovitis, right and left wrist. PROCEDURE: 1. Right and left open carpal tunnel release. 2. Flexor tenosynovectomy, right and left wrist. ANESTHESIA: General. HISTORY: The patient is a 53-year-old with EMG-proven right and left carpal tunnel syndrome. Risks, benefits and alternatives of treatment were discussed with the patient. The patient is prepared to undergo the procedure as outlined. DESCRIPTION OF PROCEDURE: The patient was brought to the operating theater. After the induction of adequate general inhalation anesthesia, the patient was prepped and draped in the supine position. A time out was performed by the entire operating room team. A 2.5 cm incision was marked out in the intrathenar space. The right and left upper extremities were exsanguinated, and a tourniquet was inflated to a pressure of 250 mmHg. The incision was made through the skin and subcutaneous tissues and all venous tributaries were controlled with bipolar cautery. The incision was deepened through the palmar fascia until the transverse carpal ligament was identified. The ligament was sharply sectioned, taking care to protect and preserve the median nerve underlying it. After the complete width of the ligament had been transected, the distal volar forearm fascia was divided under direct view. Proliferative flexor tenosynovium was noticed to encompass the median nerve and this was radically excised. After performing this maneuver, the nerve was noted to lie adequately decompressed. The wound was copiously irrigated with bacteriostatic saline, closed with 5-0 nylon in an interrupted horizontal mattress fashion. A Marcaine field block was performed at the operative site. Tourniquet was deflated. All of the fingers pinked up nicely and a sterile bulking conforming bandage was applied to the hand and the wrist. A fiberglass splint was fashioned to maintain the wrist in a modest amount of extension. This was held in place with a loosely wrapped Dexter wrap. The patient tolerated the procedure well and was brought to the recovery room in satisfactory condition and discharged with a postoperative instruction sheet as well as a followup appointment. MD ANTHONY Estrada/JARADL /[id number]
== END | disposition home or self-care (01) ==
LOC: OR 05:18
PROVIDERS: ATTEND Plastic Surgery
DX: G56.03 Carpal tunnel syndrome, bilateral upper limbs (principal); M65.842 Other synovitis and tenosynovitis, left hand; M65.841 Other synovitis and tenosynovitis, right hand; E11.9 Type 2 diabetes mellitus without complications; K21.9 Gastro-esophageal reflux disease without esophagitis; I10 Essential (primary) hypertension; Z01.810 Encounter for preprocedural cardiovascular examination; Z01.812 Encounter for preprocedural laboratory examination; Z79.4 Long term (current) use of insulin; Z79.84 Long term (current) use of oral hypoglycemic drugs
CPT/HCPCS: 25115; 36415 ×2; 80048; 81025; 82948; 93005; J0690; J1100; J1885; J2001; J2250; J2405; J2704; J7070; J3010

== ENCOUNTER 2019-04-17 09:00 | Outpatient (RCR) | payer BC ==
[~2019-04-17 09:00] MED LIST changes: -BUPIVACAINE HCL 0.5% INJ 30 ML VIAL INJ ONE; -DEXAMETHASONE SOD PHOS INJ 4 MG/ML VIAL ONE; -FENTANYL CITRATE/PF 100MCG/2 ML INJ ONE; -KETOROLAC TROMETHAMINE 30 MG/ML VIAL ONE; -LIDOCAINE HCL 2% LOCAL INJ 5 ML SDV VIAL INJ ONE; -MIDAZOLAM HCL 2 MG/2 ML VIAL ONE; -MUPIROCIN 2% OINT 22 GM TUBE ONE; -ONDANSETRON HCL INJ 2MG/ML 2ML 2 MG/ML VIAL ONE; -PROPOFOL IV EMULSION 10 MG/ML 20 ML VIAL ONE; -SEVOFLURANE INHAL SOLN 250 ML PEN BTL ONE
== END 2019-04-18 ==
LOC: OT 09:00
PROVIDERS: ATTEND Plastic Surgery
DX: G56.03 Carpal tunnel syndrome, bilateral upper limbs (principal); M25.532 Pain in left wrist; M25.531 Pain in right wrist; M25.632 Stiffness of left wrist, not elsewhere classified; M25.631 Stiffness of right wrist, not elsewhere classified; R53.1 Weakness

== ENCOUNTER 2019-04-24 08:54 | Outpatient (RCR) | payer BC | END 2019-05-18 | LOC: OT 08:54 | PROVIDERS: ATTEND Plastic Surgery | DX: G56.03 Carpal tunnel syndrome, bilateral upper limbs (principal); G56.93 Unspecified mononeuropathy of bilateral upper limbs ==

== ENCOUNTER → 2021-06-16 | Outpatient (CLI) | payer BC | LOC: RAD 13:06 | PROVIDERS: ATTEND Family Medicine | DX: M54.2 Cervicalgia (principal) | CPT/HCPCS: 72050 ==

== ENCOUNTER 2022-12-26 01:31 | Emergency (ER) | payer BC ==
[~2022-12-26] VITALS: Ht 162.6 cm; Wt 83.5 kg
[2022-12-26] MEDS ORDERED: ONDANSETRON HCL INJ 2MG/ML 2ML 2 MG/ML VIAL IV STA (01:39)
[2022-12-26] MEDS ORDERED: Morphine 4mg INJECTION 4 MG/ML INJ IV ONE (01:45)
[2022-12-26] MEDS ORDERED: SODIUM CHLORIDE 0.9% 1000ML 1,000 ML IV ONE (01:45)
[2022-12-26 01:51] LABS: BASOPHILS # (AUTO) 0.1 (0.0-0.1); BASOPHILS % 0.6 % (0.0-1.0); EOSINOPHILS # (AUTO) 0.1 (0.0-0.4); EOSINOPHILS % 0.9 % (0.0-6.0); HEMATOCRIT 42.5 % (34.2-44.1); HEMOGLOBIN 14.3 g/dL (12.0-16.0); LYMPHOCYTES # (AUTO) 4.7 (1.0-3.2); LYMPHOCYTES % 59.8 % (18.0-39.1); MEAN CORPUSCULAR HEMOGLOBIN 28.8 pg (28-32); MEAN CORPUSCULAR HGB CONC 33.6 g/dL (31-35); MEAN CORPUSCULAR VOLUME 85.7 fL (81-99); MONOCYTES # (AUTO) 0.4 (0.2-0.8); MONOCYTES % 5.1 % (4.4-11.3); NEUTROPHILS # (AUTO) 2.6 (2.1-6.9); NEUTROPHILS % 33.3 % (38.7-80.0); PLATELET COUNT 211 x10e3/uL (140-360); RED BLOOD COUNT 4.96 x10e6/uL (3.6-5.1); RED CELL DISTRIBUTION WIDTH 12.5 % (11.7-14.4)
[2022-12-26 02:12] LABS: ALBUMIN 4.3 g/dL (3.5-5.0); ALBUMIN/GLOBULIN RATIO 1.3 (0.8-2.0); ANION GAP 16.6 mmol/L (8-16); CALCIUM 9.9 mg/dL (8.4-10.2); CREATININE, SERUM 0.85 mg/dL (0.57-1.11); POTASSIUM 3.6 mmol/L (3.5-5.1)
[2022-12-26 02:19] LABS: CREATINE KINASE MB 3.3 ng/mL (0-5.0)
[2022-12-26] MEDS ORDERED: IOPAMIDOL 370 MG/ML 100 ML INFUS..BTL INJ ONE (02:22)
[2022-12-26 03:17] LABS: CLARITY,URINE CLEAR (CLEAR); COLOR,URINE YELLOW (YELLOW)
[2022-12-26 03:18] LABS: KETONES,URINE 1+ (NEGATIVE); LEUKOCYTE ESTERASE ,URINE NEGATIVE (NEGATIVE); NITRITE,URINE NEGATIVE (NEGATIVE); PROTEIN,URINE DIPSTICK NEGATIVE (NEGATIVE); URINE UROBILINOGEN 0.2 mg/dL (0.2 - 1)
[2022-12-26 03:26] LABS: BACTERIA,URINE MODERATE /HPF; EPITHELIAL CELLS,URINE FEW /LPF; RBC,URINE 0-5 /HPF (0-5)
[2022-12-26] MEDS ORDERED: ONDANSETRON ODT4 MG PO (03:33)
[2022-12-26 03:41] VITALS: BP 126/54; PULSE 72; RESP 17; TEMP 98; O2SAT 98
== END 2022-12-26 03:44 | disposition home or self-care (01) ==
LOC: ER 01:37
DX: R10.9 Unspecified abdominal pain (principal); R11.2 Nausea with vomiting, unspecified; K59.00 Constipation, unspecified; R94.31 Abnormal electrocardiogram [ECG] [EKG]
CPT/HCPCS: 36415; 74177; 80053; 81001; 82550; 82553; 83690; 84484; 85025; 93005; 99284; J2270; J2405; J7030; Q9967

== ENCOUNTER 2024-04-15 16:00 | Outpatient (RCR) | payer BC ==
[~2024-04-15 16:00] MED LIST changes: +ONDANSETRON ODT4 MG PO
== END 2024-04-18 ==
LOC: PT 16:00
PROVIDERS: ATTEND Specialist
DX: M75.101 Unspecified rotator cuff tear or rupture of right shoulder, not specified as traumatic (principal); M25.511 Pain in right shoulder; M62.81 Muscle weakness (generalized)

== ENCOUNTER 2024-04-22 11:49 | Outpatient (RCR) | payer BC | END 2024-05-18 | LOC: PT 11:49 | PROVIDERS: ATTEND Specialist | DX: M75.101 Unspecified rotator cuff tear or rupture of right shoulder, not specified as traumatic (principal); M25.511 Pain in right shoulder; M62.81 Muscle weakness (generalized) ==

== ENCOUNTER 2025-06-10 21:20 | Emergency (ER) | payer BC ==
[~2025-06-10] VITALS: Ht 162.6 cm; Wt 83.5 kg
[2025-06-10 22:02] LABS: BASOPHILS % 0.7 % (0.0-1.0); EOSINOPHILS % 0.9 % (0.0-6.0); LYMPHOCYTES % 43.8 % (18.0-39.1); MONOCYTES % 7.9 % (4.4-11.3); NEUTROPHILS % 46.7 % (38.7-80.0); RED CELL DISTRIBUTION WIDTH 12.4 % (11.7-14.4)
[2025-06-10 22:14] LABS: EST GLOMERULAR FILTRATION RATE 101.0 ML/MIN (>=60)
[2025-06-10 22:43] LABS: LEUKOCYTE ESTERASE ,URINE 2+ (NEGATIVE); PROTEIN,URINE DIPSTICK 1+ (NEGATIVE); URINE UROBILINOGEN 1 mg/dL (0.2 - 1)
[2025-06-10 22:55] LABS: EPITHELIAL CELLS,URINE MANY /LPF; WBC,URINE (MAN) 21-50 /HPF (0-5)
[2025-06-11 00:28] VITALS: PULSE 58; RESP 16; TEMP 98.6; O2SAT 100
[2025-06-11] MEDS: ONDANSETRON HCL 4 MG ORAL DISINTEGRATING TAB PO ONE (00:31)
[2025-06-11] MEDS: CEFDINIR 300 MG CAP PO ONE (00:32)
[2025-06-11] MEDS ORDERED: ONDANSETRON ODT4 MG SL (00:35)
[2025-06-11] MEDS ORDERED: CEFDINIR300 MG PO (00:35)
== END 2025-06-11 01:02 | disposition home or self-care (01) ==
LOC: ER 06-11 00:25
DX: R00.2 Palpitations (principal); N39.0 Urinary tract infection, site not specified; R53.1 Weakness; R11.0 Nausea; I10 Essential (primary) hypertension; E11.65 Type 2 diabetes mellitus with hyperglycemia; E78.5 Hyperlipidemia, unspecified; R94.31 Abnormal electrocardiogram [ECG] [EKG]
CPT/HCPCS: 36415; 71045; 80053; 81001; 82550; 83690; 84484; 85025; 93005; 99284; Q0162